=== PATIENT | female | born 1990 | race Caucasian/White ===

== ENCOUNTER 2018-07-09 20:49 | Emergency (ER) | payer BC ==
[2018-07-09] MEDS ORDERED: Amoxicillin/Clavulanate TAB* 875 MG PO ONE (22:16)
--- NOTE | 2018-07-09 23:27 | ED ---
Laceration/Wound HPI - HPI Summary HPI Summary: 27-year-old female presents with lip laceration today. She states that she had her dog with her and they saw a dog so they stopped and played together. She states that they're getting along and then her dog got to hyper and she pulled him away. She then went to check on the dog and put her face towards the other dog. The dog bit her face. She has laceration to her right upper lip. The area is not actively bleeding. Her tetanus was 2 years ago. The other dog had a collar on it. She is unsure who the grill chef of the dog was. per health department does not need rabies. - History of Current Complaint Stated Complaint: DOG BITE Time Seen by Provider: 07/09/18 21:27 Pain Intensity: 5 - Allergy/Home Medications Allergies/Adverse Reactions: Allergies Allergy/AdvReac Type Severity Reaction Status Date / Time No Known Allergies Allergy Verified 07/09/18 21:03 PMH/Surg Hx/FS Hx/Imm Hx Endocrine/Hematology History: Denies: Hx Anticoagulant Therapy Cardiovascular History: Denies: Hx Myocardial Infarction Infectious Disease History: No Infectious Disease History: Denies: Traveled Outside the [place] in Last 30 Days - Family History Known Family History: Positive: Hypertension - Social History Alcohol Use: Rare Substance Use Type: Reports: None Smoking Status (MU): Never Smoked Tobacco Review of Systems Negative: Fever Negative: Chest Pain Negative: Shortness Of Breath Positive: Other - laceration lip All Other Systems Reviewed And Are Negative: Yes Physical Exam Triage Information Reviewed: Yes Vital Signs On Initial Exam: Initial Vitals Temp Pulse Resp BP Pulse Ox 99.4 F 102 18 135/94 100 07/09/18 21:00 07/09/18 21:00 07/09/18 21:00 07/09/18 21:00 07/09/18 21:00 Vital Signs Reviewed: Yes Appearance: Positive: Well-Appearing Skin: Positive: Warm, Dry, Other - 6cm flap like laceration across jinny border on right upper lip Head/Face: Positive: Normal Head/Face Inspection Eyes: Positive: Normal, EOMI, ABDULLAHI, Conjunctiva Clear ENT: Positive: Pharynx normal Respiratory/Lung Sounds: Positive: Clear to Auscultation, Breath Sounds Present Cardiovascular: Positive: Normal, RRR Musculoskeletal: Positive: Normal Neurological: Positive: Normal Psychiatric: Positive: Normal Procedures - Laceration/Wound Repair 1 Location: face Description: Irregular Anesthesia: Local, 1.0%, Epi Length, Depth and Shape: 6cm by 1/2cm flap like Irrigated w/ Saline (ccs): 300 Closure: Single Layer Suture Type: Prolene, Chromic Number of Sutures: 9 - 7 prolene and 2 chromic Layer Closure?: No Diagnostics - Vital Signs Vital Signs Temp Pulse Resp BP Pulse Ox 07/09/18 21:00 99.4 F 102 18 135/94 100 - Laboratory Lab Statement: Any lab studies that have been ordered have been reviewed, and results considered in the medical decision making process. Laceration Repair Course/Dx - Course Course Of Treatment: 27-year-old female presents with lip laceration today. She states that she had her dog with her and they saw a dog so they stopped and played together. She states that they're getting along and then her dog got to hyper and she pulled him away. She then went to check on the dog and put her face towards the other dog. The dog bit her face. She has laceration to her right upper lip. The area is not actively bleeding. Her tetanus was 2 years ago. The other dog had a collar on it. She is unsure who the grill chef of the dog was. per health department does not need rabies. On exam has 6 cm flap-like laceration across the jinny border. It is not through and through. cleaned area extensively. Placed 7 Prolene stitches aligning the vermilion border. Place [address] on Augmentin. Told that if doesnt like how it looks gave referral to plastics. warned of signs of infection to return. patient understands agrees with plan. - Differential Dx Differental Diagnoses: Abrasion, Avulsion, Laceration - Clinical Impression Provider Diagnoses: Dog bite, Lip laceration Discharge - Sign-Out/Discharge Documenting (check all that apply): Patient Departure - Discharge Plan Condition: Good Disposition: HOME Prescriptions: Amoxicillin/Clavulanate TAB* [Augmentin TAB 875*] 875 mg PO BID #10 tab Patient Education Materials: Care For Your Stitches (ED) Referrals: No Primary Care Phys,NOPCP [Primary Care Provider] - Balaji Perea MD [Medical Doctor] - Additional Instructions: take antibiotic twice a day for 5 days avoid acidic foods or salty food until heals Keep area clean, wash with soap and water gently Take Tylenol or ibuprofen for pain every 6 hours Return to ED or primary for suture removal in 5 days a referral to plastic is provided if do not like how it looks use sunscreen on area after heals Return to ED if develop signs of infection such as fever, spreading redness, or pus formation - Billing Disposition and Condition Condition: GOOD Disposition: Home
[2018-07-09 23:34] VITALS: BP 117/74
== END 2018-07-09 23:33 | disposition home or self-care (01) ==
LOC: ED 20:49
DX: S01.511A Laceration without foreign body of lip, initial encounter (principal); W54.0XXA Bitten by dog, initial encounter; Y92.9 Unspecified place or not applicable
CPT/HCPCS: 99283; A9270-GY